=== PATIENT | male | born 1990 | race African-American/Black ===

== ENCOUNTER 2018-02-03 07:20 | Day surgery (SDC) | payer OTHER ==
[~2018-02-03 07:20] MED LIST: ATROPINE 1 MG/10 ML SYRINGE IV; DIPHENHYDRAMINE 50 MG INJ IV; EPHEDrine SULFATE 50 MG/5 ML SYG IV; FENTAnyl 50 MCG/ML VIAL IV; HYDROmorphONE (0.2 MG/ML) 10ML SYG IV; LABETALOL HCL 20MG INJ IV; MEPERIDINE 25 MG INJ IV; MIDAZOLAM 1 MG/ML 2 ML INJ IV; ONDANSETRON 4 MG INJ IV; OXYCODONE/ACETAMINOPHEN (5/325) TAB PO; SUGAMMADEX SODIUM 200 MG/2 ML VIAL IV; hydrALAzine 20 MG INJ IV; morphine (1 MG/ML) 10ML SYRINGE IV
[2018-02-03] MEDS ORDERED: ROPIVACAINE 0.5 % 30 ML VIAL (09:13)
[2018-02-03] MEDS ORDERED: morphine SULFATE/PF (10 MG/10 ML) INJ (09:13)
[2018-02-03] MEDS ORDERED: FENTAnyl 50 MCG/ML VIAL ×2 (09:20→11:57)
[2018-02-03] MEDS ORDERED: LIDOCAINE 2% (SDV) 5 ML INJ (09:20)
[2018-02-03] MEDS ORDERED: GLYCOPYRROLATE 0.4 MG INJ (09:20)
[2018-02-03] MEDS ORDERED: MIDAZOLAM 1 MG/ML 2 ML INJ (09:20)
[2018-02-03] MEDS ORDERED: PROPOFOL 20 ML (09:20)
[2018-02-03] MEDS ORDERED: ROCURONIUM 50 MG INJ (09:20)
[2018-02-03] MEDS ORDERED: NEOSTIGMINE 3 MG/3 ML SYRINGE (09:20)
[2018-02-03] MEDS ORDERED: ONDANSETRON 4 MG INJ (09:22)
[2018-02-03] MEDS ORDERED: DEXAMETHASONE 4 MG/ML 1 ML INJ ×2 (09:22→12:09)
[2018-02-03] MEDS ORDERED: HEPARIN 1000 UNITS/ML 10 ML INJ (09:37)
[2018-02-03] MEDS: LIDOCAINE 1% (MPF) 30 ML INJ (10:49)
[2018-02-03] MEDS ORDERED: THROMBIN 5000 UNIT VIAL (11:14)
[2018-02-03] MEDS ORDERED: CA CHLORIDE 10% 10 ML SYRINGE (11:14)
[2018-02-03] MEDS ORDERED: DIPHENHYDRAMINE 50 MG INJ (11:57)
[2018-02-03] MEDS ORDERED: HYDROmorphONE (0.2 MG/ML) 10ML SYG IV ×3 (11:57→12:30)
[2018-02-03] MEDS ORDERED: MEPERIDINE 25 MG INJ (12:03)
[2018-02-03] MEDS: MEPERIDINE 25 MG INJ IV (12:11)
[2018-02-03] MEDS: HYDROmorphONE (0.2 MG/ML) 10ML SYG IV ×2 (12:11→12:17)
[2018-02-03] MEDS: DIPHENHYDRAMINE 50 MG INJ IV (12:12)
[2018-02-03] MEDS ORDERED: SUCCINYLCHOLINE CHLORIDE 100 MG/5 ML SYG IV (12:21)
[2018-02-03] MEDS ORDERED: CEFAZOLIN 1 GM INJ (12:22)
[2018-02-03] MEDS ORDERED: hydrALAzine 20 MG INJ IV (12:30)
[2018-02-03] MEDS ORDERED: MIDAZOLAM 1 MG/ML 2 ML INJ IV (12:30)
[2018-02-03] MEDS ORDERED: EPHEDrine SULFATE 50 MG/5 ML SYG IV (12:30)
[2018-02-03] MEDS ORDERED: FENTAnyl 50 MCG/ML VIAL IV ×2 (12:30)
[2018-02-03] MEDS ORDERED: LABETALOL HCL 20MG INJ IV (12:30)
[2018-02-03] MEDS ORDERED: OXYCODONE/ACETAMINOPHEN (5/325) TAB PO ×2 (12:30)
[2018-02-03] MEDS ORDERED: ATROPINE 1 MG/10 ML SYRINGE IV (12:30)
[2018-02-03] MEDS ORDERED: ONDANSETRON 4 MG INJ IV (12:30)
[2018-02-03] MEDS ORDERED: morphine (1 MG/ML) 10ML SYRINGE IV ×3 (12:30)
[2018-02-03] MEDS ORDERED: morphine 2 MG INJ IV (13:00)
[2018-02-03] MEDS ORDERED: hydrALAzine 20 MG INJ (13:00)
[2018-02-03] MEDS ORDERED: LABETALOL HCL 20MG INJ (13:34)
== END 2018-02-03 13:55 | disposition home or self-care (01) ==
LOC: SDS 07:20
DX: M94.262 Chondromalacia, left knee (principal); M23.42 Loose body in knee, left knee; E66.9 Obesity, unspecified; Z68.35 Body mass index [BMI] 35.0-35.9, adult
CPT/HCPCS: 29874; 86999

== ENCOUNTER 2018-02-04 18:40 | Emergency (ER) | payer SELFPAY, OTHER | END 2018-02-04 20:37 | disposition left against medical advice (07) | LOC: E/R 18:40 | DX: Z53.21 Procedure and treatment not carried out due to patient leaving prior to being seen by health care provider (principal) ==

== ENCOUNTER 2018-02-05 13:59 | Emergency (ER) | payer OTHER | END 2018-02-05 15:36 | disposition home or self-care (01) | LOC: E/R 13:59 | DX: G89.18 Other acute postprocedural pain (principal); F17.210 Nicotine dependence, cigarettes, uncomplicated | CPT/HCPCS: 99283; Z7502 ==

== ENCOUNTER 2019-02-12 17:32 | Emergency (ER) | payer OTHER | END 2019-02-12 22:11 | disposition home or self-care (01) | LOC: FTE 22:11 | DX: M25.562 Pain in left knee (principal); Z87.891 Personal history of nicotine dependence | CPT/HCPCS: 99283; Z7502 ==